=== PATIENT | male | born 1975 | race Caucasian/White ===

== ENCOUNTER 2018-08-11 10:19 | Inpatient (IN) | payer OTHER ==
[2018-08-11 10:53] VITALS: BMI 29.2
--- NOTE | 2018-08-11 13:52 | HP ---
COWS - Scale Resting Pulse: 0= [place] 80 or Below Sweatin= Chills/Flushing Restless Observation: 1= Difficult to Sit Still Pupil Size: 1= Pupils >than Normal Bone or Joint Aches: 0= None Runny Nose/ Eye Tearin= Runny Nose/Eyes GI Upset > 30mins: 2= Nausea/Diarrhea Tremor Observation: 0= None Yawning Observation: 0= None Anxiety or Irritability: 2=Irritable/Anxious Goose Flesh Skin: 0=Smooth Skin COWS Score: 9 CIWA Score Nausea/Vomitin Muscle Tremors: 1-None Visible, but Forks Anxiety: 3 Agitation: 1-Slight > Activity Paroxysmal Sweats: 2 Orientation: 0-Oriented Tacttile Disturbances: 0-None Auditory Disturbances: 0-None Visual Disturbances: 0-None Headache: 0-None Present CIWA-Ar Total Score: 10 - Admission Criteria OASAS Guidelines: Admission for Medically Managed Detox: Requires at least one of the followin. CIWA greater than 12 2. Seizures within the past 24 hours 3. Delirium tremens within the past 24 hours 4. Hallucinations within the past 24 hours 5. Acute intervention needed for co occurring medical disorder 6. Acute intervention needed for co occurring psychiatric disorder 7. Severe withdrawal that cannot be handled at a lower level of care (continued vomiting, continued diarrhea, abnormal vital signs) requiring intravenous medication and/or fluids 8. Admission [facility] Allergies/Adverse Reactions: Allergies Allergy/AdvReac Type Severity Reaction Status Date / Time pork derived (porcine) Allergy Verified 08/11/18 12:07 History of Present Illness: patient here requesting detox from heroin use , reports 2 bundles/day IVDU in juni UE x 7 years , needles from pharmacy , denies sharing , + re-using , denies abscess , + OD 2 years ago , Narcan in hospital , latest use yesterday morning , current symptoms as above , patient is drowsy , falls asleep frequently during interview, easily awakened by verbal stimuli. etoh : binge- drinking 3 -pk beer and 2 bottles liquor , latest used 3 d . ago , daily use since 5 years ago , denies seizures , + blackouts when drinking , denies falls . Prior detox 1 yr ago @ [facility] . tobacco : 15 cigs /day cocaine : occasional use , IVDU oxy : Percocet 10 mg x 10/day denies benzo methadone : + illicit use, latest 2-3 days ago thinks 80 mg or 100 mg Utox : + roseanna , fen , opi, mtd, bzo jessy 0.000 PMHX : hep C dx 2009 no tx PSHx : denies PSych : denies meds : denies SHx : lives w/ and daughters ages 3 & 18 , works as security patrol officer @ [employer] , latest went to work 1 week ago . Legal : parole x 4 years , has 1 year left , q 3 mo visit , when + was sent to [facility] 1 year ago . Exam Limitations: Clinical Condition - Ebola screening Have you traveled outside of the country in the last 21 days: No Have you had contact with anyone from an Ebola affected area: No Have you been sick,other than usual withdrawal symptoms: No Do you have a fever: No - Review of Systems Constitutional: See HPI EENT: reports: Other (denies vision problems , denies dysphagia) Respiratory: reports: No Symptoms reported Cardiac: reports: No Symptoms Reported GI: reports: See HPI, Other (reports hernia x 3 years , sent for surgery did not want to go) : reports: No Symptoms Reported Musculoskeletal: reports: No Symptoms Reported Integumentary: reports: Erythema, Other (IVDU) Neuro: reports: See HPI Endocrine: reports: No Symptoms Reported Psychiatric: reports: Orientated x3 Patient History - Patient Medical History Hx Asthma: No Hx Chronic Obstructive Pulmonary Disease (COPD): No Hx Cardiac Disorders: No Hx Hypertension: No Hx Seizures: No Hx Diabetes: No Hx Gastrointestinal Disorders: No Hx Genitourinary Disorders: No Hx Sexually Transmitted Disorders: No Hx Renal Disease (ESRD): No Hx Depression: Yes Hx Suicide Attempt: No Hx Schizophrenia: No - Patient Surgical History Past Surgical History: No - PPD History Previous Implant?: Yes Documented Results: Negative w/o proof Implanted On Prior [facility] Admission?: No - Smoking Cessation Smoking history: Current every day smoker Have you smoked in the past 12 months: Yes Aproximately how many cigarettes per day: 10 Hx Chewing Tobacco Use: No Initiated information on smoking cessation: No - Substances Abused Heroin Route: Injection Frequency: Daily Amount used: 15-20 bags Age of first use: 25 Date of Last Use: 08/10/18 Alcohol Route: Oral Frequency: Daily Amount used: 2 6pk beer/ 2 pints Age of first use: 25 Date of Last Use: 08/09/18 Cocaine Route: Injection Frequency: Daily Amount used: 1 bag Age of first use: 22 Date of Last Use: 08/09/18 Family Disease History - Family Disease History Family Disease History: CA: Grandparent ( renal CA ), Mother (breast), Other: Brother (A & W ), Sister (A & W ), Daughter (A & W ) Admission Physical Exam [facility] - Vital Signs Vital Signs: Vital Signs - 24 hr 08/11/18 10:52 Temperature 97.0 F L Pulse Rate 68 Respiratory 18 Rate Blood Pressure 117/55 L - Physical General Appearance: Yes: Mild Distress, Other (drowsy) HEENTM: Yes: EOMI, Normocephalic, Normal Voice Respiratory: Yes: Chest Non-Tender, Lungs Clear, Normal Breath Sounds Neck: Yes: No masses,lesions,Nodules, Trachea in good position Breast: Yes: Breast Exam Deferred Cardiology: Yes: Regular Rhythm, Regular Rate, S1, S2 Abdominal: Yes: Normal Bowel Sounds, Non Tender, Soft, Other (no umbilical or inguinal hernia noted) Genitourinary: Yes: Within Normal Limits Back: Yes: Normal Inspection Musculoskeletal: Yes: Gait Steady Extremities: Yes: Normal Capillary Refill, Erythema (R UE , some streaking dried blood at IVDU site), Inflammation Neurological: Yes: Motor Strength 5/5, Other (sleepy) Integumentary: Yes: Erythema, Track Johnson (juni UE) - Diagnostic (1) Opiate dependence Current Visit: Yes Status: Acute Qualifiers: Substance use status: with intoxication (2) Alcohol dependence Current Visit: Yes Status: Acute Qualifiers: Substance use status: in withdrawal (3) Cocaine dependence Current Visit: Yes Status: Chronic Qualifiers: Substance use status: uncomplicated Qualified Code(s): F14.20 - Cocaine dependence, uncomplicated (4) Nicotine dependence Current Visit: Yes Status: Chronic Qualifiers: Nicotine product type: cigarettes BHS Breath Alcohol Content Breath Alcohol Content: 0 Urine Drug Screen - Results Drug Screen Negative: No Urine Drug Screen Results: ROSEANNA-Cocaine, OPI-Opiates, BZO-Benzodiazepines, MTD- Methadone, FEN-Fentanyl
[2018-08-11] MEDS ORDERED: MAG HYDROX/AL HYDROX/SIMETH 30 ML UNIT-DOSE CUP PO PRN (14:02)
[2018-08-11] MEDS ORDERED: P-EPHED 60MG/TRIPROLIDI 2.5MG TABLET PO PRN (14:02)
[2018-08-11] MEDS ORDERED: NICOTINE POLACRILEX 2 MG GUM BUC PRN (14:02)
[2018-08-11] MEDS ORDERED: MENTHOL/PHENOL 1 EACH UD MM PRN (14:02)
[2018-08-11] MEDS ORDERED: MAGNESIUM CITRATE 300 ML BOTTLE PO PRN (14:02)
[2018-08-11] MEDS ORDERED: guaiFENesin/D-METHORPHAN HB 10 ML UNIT-DOSE CUPS PO PRN (14:02)
[2018-08-11] MEDS ORDERED: MAGNESIUM HYDROX 2400MG/30ML ORAL SUSPENSION 30 ML CUP PO PRN (14:02)
[2018-08-11] MEDS ORDERED: IBUPROFEN 400 MG TABLET (FP) PO PRN (14:02)
[2018-08-11] MEDS ORDERED: ACETAMINOPHEN 325 MG TABLET (FP) PO PRN (14:02)
[2018-08-11] MEDS: diazePAM 5 MG TABLET PO PRN (16:57)
[2018-08-11] MEDS: THIAMINE HCL 100 MG TABLET (FP) PO SCH (22:19)
[2018-08-11] MEDS: diazePAM 5 MG TABLET PO SCH (22:19)
[2018-08-11] MEDS: SULFAMETHOXAZOLE/TRIMETHOPRIM 800MG/160MG D.S. TABLET PO SCH (22:19)
[2018-08-11] MEDS ORDERED: METHADONE HCL 10 MG TABLET (FOR DETOX USE ONLY) PO ONE (23:00)
[2018-08-12] MEDS: diazePAM 5 MG TABLET PO SCH ×3 (05:28→22:19)
[2018-08-12] MEDS: diazePAM 5 MG TABLET PO PRN ×2 (09:02→17:49)
[2018-08-12] MEDS ORDERED: METHADONE HCL 10 MG TABLET (FOR DETOX USE ONLY) PO SCH (10:00)
[2018-08-12] MEDS: SULFAMETHOXAZOLE/TRIMETHOPRIM 800MG/160MG D.S. TABLET PO SCH ×2 (10:36→22:19)
[2018-08-12] MEDS: PRENATAL VITAMINS W/ FOLIC ACID TABLET (FP) PO SCH (10:36)
[2018-08-12 11:04] LABS: ALBUMIN 3.4 g/dl (3.4-5.0); ALK PHOS 84 U/L (45-117); ANION GAP 5 MMOL/L (8-16); BILIRUBIN,TOTAL 0.4 mg/dL (0.2-1); BLOOD UREA NITROGEN 14 mg/dL (7-18); CHLORIDE 106 mmol/L (98-107); CO2 27 mmol/L (21-32); CREATININE 1.3 mg/dL (0.55-1.3); GLUCOSE,RANDOM 130 mg/dL (74-106); HEMATOCRIT 40.8 % (35.4-49); HEMOGLOBIN 12.5 GM/dL (11.7-16.9); MCH 25.5 pg (25.7-33.7); MCHC 30.6 g/dl (32.0-35.9); MEAN CELL VOLUME 83.2 fl (80-96); MEAN PLT VOLUME 9.6 fl (7.5-11.1); PLATELET COUNT 268 K/MM3 (134-434); POTASSIUM 4.2 mmol/L (3.5-5.1); RDW 14.7 % (11.9-15.9); SGOT/AST 61 U/L (15-37); SGPT/ALT 82 U/L (13-61); SODIUM 138 mmol/L (136-145); WHITE BLOOD COUNT 10.3 K/mm3 (4.0-10.0)
[2018-08-12] MEDS ORDERED: FLU VACCINE QUAD 60 MCG/0.5 ML (MDV 18-19) IM ONE (12:00)
--- NOTE | 2018-08-12 14:38 | PN ---
S CIWA - CIWA Score Nausea/Vomitin-No Nausea/No Vomiting Muscle Tremors: 2 Anxiety: 3 Agitation: 3 Paroxysmal Sweats: 3 Orientation: 0-Oriented Tacttile Disturbances: 2-Mild Itch/Numbness/Burn Auditory Disturbances: 0-None Visual Disturbances: 0-None Headache: 0-None Present CIWA-Ar Total Score: 13 BHS COWS - Scale Resting Pulse: 1= [place] 81-100 Sweatin= Chills/Flushing Restless Observation: 1= Difficult to Sit Still Pupil Size: 0= Normal to Room Light Bone or Joint Aches: 1= Mild Discomfort Runny Nose/ Eye Tearin= None GI Upset > 30mins: 0= None Tremor Observation of Outstretched Hands: 2= Slight Tremor Visible Yawning Observation: 1= 1-2x During Session Anxiety or Irritability: 2=Irritable/Anxious Goose Flesh Skin: 0=Smooth Skin COWS Score: 9 BHS Progress Note (SOAP) Subjective: Anxious, Sweating, Tremors. Objective: PATIENT A & O X 3. IN NO ACUTE DISTRESS. 08/12/18 14:39 Vital Signs Temperature 97.6 F 08/12/18 13:28 Pulse Rate 96 H 08/12/18 13:28 Respiratory Rate 18 08/12/18 13:28 Blood Pressure 124/76 08/12/18 13:28 O2 Sat by Pulse Oximetry (%) Laboratory Tests 08/12/18 08/12/18 05:40 05:40 WBC 10.3 H RBC 4.90 Hgb 12.5 Hct 40.8 MCV 83.2 MCH 25.5 L MCHC 30.6 L RDW 14.7 Plt Count 268 MPV 9.6 Sodium 138 Potassium 4.2 Chloride 106 Carbon Dioxide 27 Anion Gap 5 L BUN 14 Creatinine 1.3 Creat Clearance w eGFR > 60 Random Glucose 130 H Calcium 9.0 Total Bilirubin 0.4 AST 61 H ALT 82 H Alkaline Phosphatase 84 Total Protein 7.0 Albumin 3.4 LABS NOTED. RPR RESULT PENDING. 08/12/18 14:40 Assessment: 08/12/18 14:40 WITHDRAWAL SYMPTOMS. Plan: CONTINUE DETOX. INCREASE DAILY PO FLUID INTAKE.
[2018-08-12] MEDS: MELATONIN 5 MG TABLETS PO PRN (22:19)
[2018-08-12] MEDS: THIAMINE HCL 100 MG TABLET (FP) PO SCH (22:19)
[2018-08-13] MEDS ORDERED: METHADONE HCL 5 MG TABLET (FOR DETOX USE ONLY) PO SCH (10:00)
[2018-08-13] MEDS: diazePAM 5 MG TABLET PO SCH ×2 (10:10→22:20)
[2018-08-13] MEDS: SULFAMETHOXAZOLE/TRIMETHOPRIM 800MG/160MG D.S. TABLET PO SCH ×2 (10:10→22:19)
[2018-08-13] MEDS: PRENATAL VITAMINS W/ FOLIC ACID TABLET (FP) PO SCH (10:10)
--- NOTE | 2018-08-13 15:08 | PN ---
S CIWA - CIWA Score Nausea/Vomitin Muscle Tremors: 3 Anxiety: 3 Agitation: 3 Paroxysmal Sweats: 3 Orientation: 0-Oriented Tacttile Disturbances: 0-None Auditory Disturbances: 0-None Visual Disturbances: 0-None Headache: 2-Mild CIWA-Ar Total Score: 16 BHS COWS - Scale Resting Pulse: 2= [place] 101-120 Sweatin= Chills/Flushing Restless Observation: 3= Extraneous Movement Pupil Size: 0= Normal to Room Light Bone or Joint Aches: 2= Severe Diffuse Aches Runny Nose/ Eye Tearin= None GI Upset > 30mins: 1= Stomach Cramp Tremor Observation of Outstretched Hands: 2= Slight Tremor Visible Yawning Observation: 0= None Anxiety or Irritability: 2=Irritable/Anxious Goose Flesh Skin: 0=Smooth Skin COWS Score: 13 S Progress Note (SOAP) Subjective: Sweating, headache, interrupted sleep Objective: 08/13/18 15:00 Last Vital Signs Temp Pulse Resp BP Pulse Ox 98.9 F 117 H 16 115/65 08/13/18 14:11 08/13/18 14:11 08/13/18 14:11 08/13/18 14:11 Laboratory Tests 08/12/18 08/12/18 08/12/18 05:40 05:40 05:40 WBC 10.3 H RBC 4.90 Hgb 12.5 Hct 40.8 MCV 83.2 MCH 25.5 L MCHC 30.6 L RDW 14.7 Plt Count 268 MPV 9.6 Sodium 138 Potassium 4.2 Chloride 106 Carbon Dioxide 27 Anion Gap 5 L BUN 14 Creatinine 1.3 Creat Clearance w eGFR > 60 Random Glucose 130 H Calcium 9.0 Total Bilirubin 0.4 AST 61 H ALT 82 H Alkaline Phosphatase 84 Total Protein 7.0 Albumin 3.4 RPR Titer Nonreactive Labs reviewed: serum glucose 130mg/dl Assessment: 08/13/18 15:03 Withdrawal symptoms Noted with hyperglycemia Plan: Continue detox Encouraged PO water intake Hyperglycemia: possible due to withdrawal, will repeat fasting glucose in AM
[2018-08-13] MEDS: diazePAM 5 MG TABLET PO PRN (17:27)
[2018-08-13] MEDS: THIAMINE HCL 100 MG TABLET (FP) PO SCH (22:19)
[2018-08-13] MEDS: MELATONIN 5 MG TABLETS PO PRN (22:20)
[2018-08-14] MEDS ORDERED: METHADONE HCL 10 MG TABLET (FOR DETOX USE ONLY) PO SCH (10:00)
[2018-08-14] MEDS: PRENATAL VITAMINS W/ FOLIC ACID TABLET (FP) PO SCH (10:15)
[2018-08-14] MEDS: SULFAMETHOXAZOLE/TRIMETHOPRIM 800MG/160MG D.S. TABLET PO SCH ×2 (10:15→22:00)
[2018-08-14] MEDS: diazePAM 5 MG TABLET PO SCH ×2 (10:16→22:00)
--- NOTE | 2018-08-14 13:52 | PN ---
BHS Progress Note (SOAP) Subjective: Interrupted Sleep. Objective: PATIENT A & O X 2 (UNCERTAIN ABOUT CURRENT DAY / DATE). PATIENT OBSERVED AMBULATING ON UNIT. IN NO ACUTE DISTRESS. 08/14/18 13:50 Vital Signs Temperature 98 F 08/14/18 10:02 Pulse Rate 110 H 08/14/18 10:02 Respiratory Rate 18 08/14/18 10:02 Blood Pressure 105/61 08/14/18 10:02 O2 Sat by Pulse Oximetry (%) Laboratory Tests 08/12/18 08/12/18 08/12/18 05:40 05:40 05:40 WBC 10.3 H RBC 4.90 Hgb 12.5 Hct 40.8 MCV 83.2 MCH 25.5 L MCHC 30.6 L RDW 14.7 Plt Count 268 MPV 9.6 Sodium 138 Potassium 4.2 Chloride 106 Carbon Dioxide 27 Anion Gap 5 L BUN 14 Creatinine 1.3 Creat Clearance w eGFR > 60 Random Glucose 130 H Fasting Glucose Calcium 9.0 Total Bilirubin 0.4 AST 61 H ALT 82 H Alkaline Phosphatase 84 Total Protein 7.0 Albumin 3.4 RPR Titer Nonreactive 08/14/18 08:15 WBC RBC Hgb Hct MCV MCH MCHC RDW Plt Count MPV Sodium Potassium Chloride Carbon Dioxide Anion Gap BUN Creatinine Creat Clearance w eGFR Random Glucose Fasting Glucose 85 Calcium Total Bilirubin AST ALT Alkaline Phosphatase Total Protein Albumin RPR Titer LABS NOTED. Assessment: 08/14/18 13:51 WITHDRAWAL SYMPTOMS. Plan: CONTINUE DETOX. INCREASE DAILY PO FLUID INTAKE.
[2018-08-14] MEDS: MELATONIN 5 MG TABLETS PO PRN (22:00)
[2018-08-14] MEDS: THIAMINE HCL 100 MG TABLET (FP) PO SCH (22:00)
[2018-08-15] MEDS ORDERED: METHADONE HCL 5 MG TABLET (FOR DETOX USE ONLY) PO SCH (06:00)
[2018-08-15 06:09] VITALS: BP 97/61; PULSE 90; TEMP 96.5
[2018-08-15] MEDS ORDERED: diazePAM 5 MG TABLET PO SCH (10:00)
--- NOTE | 2018-08-15 17:59 | DS ---
[facility] Detox Discharge Summary Admission Date: 08/11/18 Discharge Date: 08/15/18 - History Present History: Alcohol Dependence, Cocaine Dependence, Opioid Dependence Additional Comments: PATIENT GOING TO [facility] ([place], [place]) FOR AFTERCARE. PRESCRIPTION FOR ANTIBIOTIC (BACTRIM DS) STARTED FOR TREATMENT OF ABSCESS OF RIGHT ARM WHILE PATIENT WAS ADMITTED FOR DETOX GIVEN TO PATIENT TO TAKE WITH WITH FOR AFTERCARE FOLLOW-UP. PATIENT WAS DISCHARGED FROM DETOX UNIT IN STABLE MEDICAL CONDITION. Pertinent Past History: History of Depression, Nicotine Dependence. - Physical Exam Results Vital Signs: Vital Signs Temperature 96.5 F L 08/15/18 06:08 Pulse Rate 90 08/15/18 06:08 Respiratory Rate 18 08/15/18 06:08 Blood Pressure 97/61 08/15/18 06:08 O2 Sat by Pulse Oximetry (%) Pertinent Admission Physical Exam Findings: WITHDRAWAL SYMPTOMS. Laboratory Tests 08/12/18 08/12/18 08/12/18 05:40 05:40 05:40 WBC 10.3 H RBC 4.90 Hgb 12.5 Hct 40.8 MCV 83.2 MCH 25.5 L MCHC 30.6 L RDW 14.7 Plt Count 268 MPV 9.6 Sodium 138 Potassium 4.2 Chloride 106 Carbon Dioxide 27 Anion Gap 5 L BUN 14 Creatinine 1.3 Creat Clearance w eGFR > 60 Random Glucose 130 H Fasting Glucose Calcium 9.0 Total Bilirubin 0.4 AST 61 H ALT 82 H Alkaline Phosphatase 84 Total Protein 7.0 Albumin 3.4 RPR Titer Nonreactive 08/14/18 08:15 WBC RBC Hgb Hct MCV MCH MCHC RDW Plt Count MPV Sodium Potassium Chloride Carbon Dioxide Anion Gap BUN Creatinine Creat Clearance w eGFR Random Glucose Fasting Glucose 85 Calcium Total Bilirubin AST ALT Alkaline Phosphatase Total Protein Albumin RPR Titer LABS NOTED. - Treatment Hospital Course: Detox Protocol Followed, Detoxed Safely, Responded well, Discharged Condition Good, Rehab Referral Accepted Patient has Accepted a Rehab Referral to: [facility] ([place], [place]). - Medication Discharge Medications: Ambulatory Orders Sulfamethoxazole/Trimethoprim [Bactrim Ds -] 1 tab PO BID 5 Days #10 tablet - Diagnosis (1) Alcohol dependence Status: Acute Qualifiers: Substance use status: in withdrawal Complication of substance-induced condition: uncomplicated Qualified Code(s): F10.230 - Alcohol dependence with withdrawal, uncomplicated (2) Opiate dependence Status: Acute Qualifiers: Substance use status: with intoxication Complication of substance-induced condition: uncomplicated Qualified Code(s): F11.220 - Opioid dependence with intoxication, uncomplicated (3) Cocaine dependence Status: Acute Qualifiers: Substance use status: uncomplicated Qualified Code(s): F14.20 - Cocaine dependence, uncomplicated (4) Nicotine dependence Status: Chronic Qualifiers: Nicotine product type: cigarettes Substance use status: uncomplicated Qualified Code(s): F17.210 - Nicotine dependence, cigarettes, uncomplicated - AMA Did Patient Leave Against Medical Advice: No
== END 2018-08-15 09:23 | disposition home or self-care (01) | DRG 773 ==
LOC: YASAS 10:19 → Y3N 14:20
PROC: HZ2ZZZZ Detoxification Services for Substance Abuse Treatment (ICD-10-PCS; principal; 2018-08-11)
DX: F11.23 Opioid dependence with withdrawal (principal); F10.230 Alcohol dependence with withdrawal, uncomplicated; F14.20 Cocaine dependence, uncomplicated; F17.210 Nicotine dependence, cigarettes, uncomplicated; F32.9 Major depressive disorder, single episode, unspecified; L02.413 Cutaneous abscess of right upper limb; R73.9 Hyperglycemia, unspecified; B18.2 Chronic viral hepatitis C
CPT/HCPCS: 36415; 80053; 82947; 85027; 86593